=== PATIENT | male | born 1965 | race Caucasian/White ===

== ENCOUNTER 2024-12-07 10:37 | Outpatient (RCR) | payer OTHER, SELFPAY | END 2024-12-19 23:59 | disposition home or self-care (01) | LOC: SCTC 10:37 | PROVIDERS: PCP Internal Medicine; Referring Provider Nurse Practitioner Family; Visit Provider Nurse Practitioner Family | DX: D75.89 Other specified diseases of blood and blood-forming organs (principal); Z87.19 Personal history of other diseases of the digestive system | CPT/HCPCS: 99212; G0463 ==